=== PATIENT | male | born 1980 | race Caucasian/White ===

== ENCOUNTER → 2016-08-11 | Outpatient (REF) | payer OTHER | LOC: M LAB REF 12:10 | PROVIDERS: ATTEND Physician Assistant Medical | DX: J02.9 Acute pharyngitis, unspecified (principal) ==

== ENCOUNTER → 2019-07-06 | Outpatient (REF) | payer OTHER | LOC: M LAB REF 12:32 → M LABDRWAD 12:32 | PROVIDERS: ATTEND Physician Assistant Medical | DX: Z80.42 Family history of malignant neoplasm of prostate (principal) | CPT/HCPCS: 36415; G0103 ==

== ENCOUNTER → 2020-09-02 | Outpatient (REF) | payer OTHER | LOC: M WUC 10:43 | PROVIDERS: ATTEND Physician Assistant | DX: R05 Cough (principal) ==

== ENCOUNTER 2020-11-16 06:41 | Emergency (ER) | payer OTHER ==
[~2020-11-16] VITALS: Ht 170.2 cm; Wt 71.2 kg
--- NOTE | 2020-11-16 08:35 | REP ---
INDICATION: r/o FB R 3rd finger, ttp. COMPARISON: Comparison right hand radiographs are from May 28, 2013.. TECHNIQUE: Four views of the right long finger. FINDINGS: Four views of the right long finger demonstrate no evidence of fracture or subluxation. There is soft tissue swelling about the PIP joint.. . There is a shard like linear opaque foreign body in the radial soft tissues of the right long finger at the level of the distal and of the proximal phalanx. This foreign body measures 11 mm in length by 1.5 mm in greatest thickness. there is no evidence of intra-articular or other soft tissue gas.. IMPRESSION: Linear shard like opaque foreign body in the radial soft tissues adjacent to the distal end of the proximal phalanx of the right long finger. No fracture or intra-articular gas seen.. <Electronically signed by Connor Vogel > 11/16/20 0839
[2020-11-16] MEDS ORDERED: LIDOCAINE 1% MDV 20ML VIAL INFIL ONE (08:40)
[2020-11-16] MEDS ORDERED: ceFAZolin SOD 1 GM in D5W MINI-BAG PLUS 50 ML IV ONE (09:10)
[2020-11-16] MEDS ORDERED: CLINDAMYCIN 900 MG in IV 1 EA IV ONE (09:20)
[2020-11-16] MEDS ORDERED: POLYSPORIN TOPICAL OINTMENT 15GM TOP ONE (10:00)
[2020-11-16] MEDS ORDERED: BACT800T5 PO (11:55)
[2020-11-16 12:07] LABS: RSV AMPLIFICATION NEGATIVE (NEGATIVE)
[2020-11-16 12:08] VITALS: BP 133/84
--- NOTE | 2020-11-17 10:45 | ER ---
ER CONSULTATION DATE: 11/16/2020 TIME: 1 pm. CONSULTING SERVICE: Orthopedic surgery CONSULTING PHYSICIAN: Philippe Beltrán HISTORY OF PRESENT ILLNESS: This is a 40-year-old healthy male who sustained a foreign body of the right index finger after changing a fluorescent light bulb. The bulb shattered in his hand, and he had several glass fragments that he removed himself; however, there was a residual piece of glass within the right index finger on the radial border. The patient presented to [facility] for further evaluation and treatment regarding possible removal of the glass. Orthopedic surgery was consulted for evaluation of the shard of glass and the possibility of removing it intraoperatively. MEDICAL HISTORY: Lumbago, or back pain, otherwise healthy. SURGICAL HISTORY: 1. Right total hip arthroplasty. 2. Right thumb ulnar collateral ligament (UCL) repair. ALLERGIES TO MEDICATION: AMINOPHYLLINE, CEFTRIAXONE. CURRENT MEDICATIONS: Unknown. SOCIAL HISTORY: He is a nondrinker, nonsmoker. Non-IV drug user. PHYSICAL EXAMINATION: Patient had a very small punctate wound about the radial aspect of his right index finger, which was essentially entrance wound of the glass shard. This has been opened up with a scalpel by the PA and debrided. He otherwise was neurovascularly intact to the right upper extremity to included 5/5 motor strength in the musculature of the musculocutaneous axillary, radial, median, and ulnar nerve distributions. He had sensation intact to light touch to the nerve distributions of the musculocutaneous axillary, radial, median, and ulnar nerve distributions. He had sensation intact to light touch at the radial border of the right index finger and also had sensation intact to light touch to the ulnar border of the right index finger. He had brisk capillary refill to all the digits of his right hand, 2+ radial and ulnar pulse. Patient was able to make a full fist; however, he did have some mild discomfort with proximal interphalangeal (PIP) flexion. Radiographs demonstrate a splinter of glass on the radial aspect of the patient's right index finger just proximal to the digital interphalangeal joint. PLAN: Given the patient's diagnosis of retained glass within the finger and the associated risks of surgery, which may include digital nerve or artery damage, permanent damage, flexor tenosynovitis (FTS), and other surgically related risks, I do believe that a trial of observation and activity as tolerated would be necessary prior to proceeding with surgery for glass foreign body removal. I feel that at this point in time the patient would be better off felton taping the right index finger, progressing through life, and at 1 week deciding if he is able to tolerate the glass in its current location. If not, I believe that he may be indicated given patient non-tolerance with nonoperative treatment; however, this would not be my first choice and certainly not emergent. The patient will followup with Dr. Renteria in [facility] on 11/21/2020 for further evaluation of the patient's progress. If patient fails to improve in 5 days' when he sees Dr. Walters, I would recommend a transfer to the [facility] ([facility]) [facility], where he previously received a gamekeeper's R UCL of the thumb repair. Patient was in agreement with this plan. Thank you for this interesting consult. RAY
== END 2020-11-16 12:16 | disposition home or self-care (01) ==
LOC: M ED 06:41
DX: S61.240A Puncture wound with foreign body of right index finger without damage to nail, initial encounter (principal); W25.XXXA Contact with sharp glass, initial encounter; Y92.018 Other place in single-family (private) house as the place of occurrence of the external cause; Z88.8 Allergy status to other drugs, medicaments and biological substances

== ENCOUNTER → 2021-06-18 | Outpatient (REF) | payer OTHER ==
[~2021-06-18] MED LIST: BACT800T5 PO
== END ==
LOC: M SFHCADAM 15:52
PROVIDERS: ATTEND Family Medicine
DX: Z13.0 Encounter for screening for diseases of the blood and blood-forming organs and certain disorders involving the immune mechanism (principal); Z13.220 Encounter for screening for lipoid disorders; Z80.42 Family history of malignant neoplasm of prostate; Z53.9 Procedure and treatment not carried out, unspecified reason

== ENCOUNTER → 2024-04-07 | Outpatient (CLI) | payer OTHER, BC | LOC: M ADAMS 08:48 | PROVIDERS: ATTEND Family Medicine | DX: J22 Unspecified acute lower respiratory infection (principal) ==

== ENCOUNTER 2025-05-14 20:53 | Emergency (ER) | payer BC ==
[~2025-05-14] VITALS: Ht 170.2 cm; Wt 69.5 kg
[2025-05-14] MEDS ORDERED: IBUP600T42 PO (23:14)
[2025-05-14 23:42] VITALS: BP 147/69; TEMP 98.9; O2SAT 99
== END 2025-05-14 23:58 | disposition home or self-care (01) ==
LOC: M ED 20:53
DX: S83.91XA Sprain of unspecified site of right knee, initial encounter (principal); Y92.9 Unspecified place or not applicable; Y93.9 Activity, unspecified; Y99.0 Civilian activity done for income or pay; W19.XXXA Unspecified fall, initial encounter; Z88.8 Allergy status to other drugs, medicaments and biological substances; Z79.1 Long term (current) use of non-steroidal anti-inflammatories (NSAID)

== ENCOUNTER → 2025-05-15 | Outpatient (CLI) | payer BC ==
[~2025-05-15] MED LIST changes: +IBUP600T42 PO
== END ==
LOC: M SOG 13:19
PROVIDERS: ATTEND Physician Assistant
DX: M79.604 Pain in right leg (principal)

== ENCOUNTER → 2025-05-15 | Outpatient (CLI) | payer BC | LOC: M RAD 14:54 | PROVIDERS: ATTEND Physician Assistant | DX: M79.604 Pain in right leg (principal) ==